=== PATIENT | female | born 1930 | race Caucasian/White ===

== ENCOUNTER → 2019-05-21 | Outpatient (CLI) | payer OTHER ==
[~2019-05-21] MED LIST: ASCO500C18 PO; ATOR20TA65 PO; BIOT5000 PO; CALC600T12 PO; CYAN500L PO; FISH1CAP49 PO; FURO40TA5 PO; INSU3INS10 SQ; LACT1CAP70 PO; LEVO75TA10 PO; LUTE6CAP2 PO; METO25TA6 PO; MULT-1103 PO; POTA10TA14 PO; RIVA15TA PO; VITS1TAB3 PO
== END | disposition home or self-care (01) ==
LOC: SHCH 11:20
PROVIDERS: ATTEND Internal Medicine Cardiovascular Disease
DX: I65.23 Occlusion and stenosis of bilateral carotid arteries (principal)
CPT/HCPCS: 93880

== ENCOUNTER → 2020-11-13 | Outpatient (CLI) | payer OTHER ==
[~2020-11-13] MED LIST changes: +CALC-1125 PO; -CALC600T12 PO
== END | disposition home or self-care (01) ==
LOC: SHCH 08:23
PROVIDERS: ATTEND Internal Medicine Cardiovascular Disease
DX: I48.0 Paroxysmal atrial fibrillation (principal)
CPT/HCPCS: 93306; 93356